=== PATIENT | male | born 1980 | race African-American/Black ===

== ENCOUNTER 2018-05-12 15:58 | Emergency (ER) | payer OTHER, SELFPAY | END 2018-05-12 16:58 | disposition home or self-care (01) | LOC: SCSER 15:58 | DX: K29.70 Gastritis, unspecified, without bleeding (principal); F17.210 Nicotine dependence, cigarettes, uncomplicated | CPT/HCPCS: 99283 ==

== ENCOUNTER 2018-10-11 16:43 | Emergency (ER) | payer OTHER | END 2018-10-11 17:25 | disposition home or self-care (01) | LOC: SCSER 16:43 | DX: K04.4 Acute apical periodontitis of pulpal origin (principal); K02.9 Dental caries, unspecified; F17.210 Nicotine dependence, cigarettes, uncomplicated | CPT/HCPCS: 99282 ==

== ENCOUNTER 2019-04-04 20:27 | Emergency (ER) | payer OTHER, SELFPAY | END 2019-04-04 21:04 | disposition home or self-care (01) | LOC: ERS 20:27 | DX: F19.10 Other psychoactive substance abuse, uncomplicated (principal); F17.210 Nicotine dependence, cigarettes, uncomplicated | CPT/HCPCS: 99284 ==

== ENCOUNTER 2019-04-04 22:45 | Emergency (ER) | payer OTHER | END 2019-04-04 22:57 | LOC: ERS 22:45 | DX: Z02.89 Encounter for other administrative examinations (principal); F17.210 Nicotine dependence, cigarettes, uncomplicated | CPT/HCPCS: 99283 ==

== ENCOUNTER 2020-08-13 02:50 | Emergency (ER) | payer BC | END 2020-08-13 03:17 | LOC: ERS 02:50 | DX: Z02.89 Encounter for other administrative examinations (principal); I10 Essential (primary) hypertension; F17.210 Nicotine dependence, cigarettes, uncomplicated | CPT/HCPCS: 99283 ==

== ENCOUNTER 2021-10-08 12:06 | Emergency (ER) | payer SELFPAY | END 2021-10-08 14:52 | LOC: ERS 12:06 | DX: S00.83XA Contusion of other part of head, initial encounter (principal); F17.210 Nicotine dependence, cigarettes, uncomplicated; X58.XXXA Exposure to other specified factors, initial encounter | CPT/HCPCS: 70450; 70486 ==

== ENCOUNTER 2023-08-24 15:45 | Emergency (ER) | payer OTHER, SELFPAY ==
[2023-08-24 16:48] LABS: #Basophils 0.06 10x3/uL (0.0-0.2); %Basophils 0.8 % (0.0-1.0); %Lymphocytes 34.6 % (21.0-51.0); %Neutrophils 51.6 % (42.0-75.0); Hematocrit 39.9 % (42.0-52.0); Hemoglobin 12.5 g/dL (14.0-18.0); Mean Corpuscular HGB CONC 31.3 g/dL (32.0-36.0); Mean Corpuscular Hemoglobin 25.4 pg (27.0-31.0); Mean Corpuscular Volume 80.9 fL (78.0-98.0); Mean Platelet Volume 9.9 fL (7.4-10.4); Platelet Count 311 10x3/uL (130-400); RBC Distribution Width 14.6 % (11.5-14.5); Red Blood Cell (RBC) Count 4.93 mill/uL (4.70-6.10)
[2023-08-24 17:05] LABS: ALT (SGPT) 28 U/L (8-55); AST (SGOT) 20 U/L (5-34); Albumin 3.8 g/dL (3.5-5.0); Alkaline Phosphatase 99 U/L (40-110); Anion Gap 10 mmol/L (10-20); BUN (Urea Nitrogen) 13 mg/dL (8.9-20.6); Bilirubin, Total 0.3 mg/dL (0.2-1.2); Calc. Creatinine Clearance 0 mL/min (70-130); Calcium 9.1 mg/dL (7.8-10.44); Carbon Dioxide 27 mmol/L (22-29); Chloride 101 mmol/L (98-107); Estimated GFR 85; Globulin 3.7 g/dL (2.4-3.5); Glucose 245 mg/dL (70-105); Lipase 16 U/L (8-78); Potassium 3.8 mmol/L (3.5-5.1); Protein, Total 7.5 g/dL (6.0-8.3); Sodium 134 mmol/L (136-145)
== END 2023-08-24 17:57 ==
LOC: EEVIPCON 15:45 → ERS 15:45
DX: E10.65 Type 1 diabetes mellitus with hyperglycemia (principal); F17.210 Nicotine dependence, cigarettes, uncomplicated
CPT/HCPCS: 36415; 36416; 80053; 82010; 83690; 85025; 99283